=== PATIENT | male | born 1980 | race Caucasian/White ===

== ENCOUNTER 2017-08-01 22:26 | Inpatient (IN) | payer BC ==
[~2017-08-01] VITALS: Ht 175.3 cm; Wt 73.3 kg
[~2017-08-01 22:26] MED LIST: BACLOFEN10 MG PO; BUSPIRONE HCL10 MG PO; CATAPRES-TTS 21 EACH TD; FOLIC ACID1 MG PO; KLONOPIN0.5 M1 PO; LISINOPRIL10 MG PO; NEXIUM20 MG PO; NEXIUM40 MG PO; OXYCODONE HCL10 MG PO; OXYCONTIN40 MG PO; REGLAN10 MG PO
[2017-08-01 23:25] LABS: HEMATOCRIT 46.8 % (38.0-50.0); MCH 32.3 PG (29.0-34.0); MCHC 34.2 G/DL (30.0-36.0); MCV 94.5 FL (86-99); MEAN PLAT.VOLUME 10.3 uM^3 (9.0-12.4); PLATELET COUNT 161 K/uL (156-360); RBC DIS.WIDTH-SD 59.3 % (39-53); RED BLOOD COUNT 4.95 M/uL (4.00-5.50); WHITE BLOOD COUNT 6.4 K/uL (4.1-10.2)
[2017-08-01 23:36] LABS: CHLORIDE 109 mEq/L (99-109); POTASSIUM 3.7 mEq/L (3.7-5.4); SODIUM 145 mEq/L (136-147)
[2017-08-01 23:38] LABS: GLUCOSE 129 mg/dL (70-99)
[2017-08-01 23:39] LABS: ANION GAP 18 MEQ/L (2-14)
[2017-08-01 23:41] LABS: SERUM ETHYL ALCOHOL 388 mg/dL
[2017-08-01 23:42] LABS: GFR ESTIMATE (CALCULATED) > 59 mL/min/
[2017-08-01 23:43] LABS: UREA NITROGEN (BUN) 8 mg/dL (9-23)
[2017-08-02 04:28] LABS: POINT-OF-CARE METER ID UU13113747
[2017-08-02 05:14] LABS: AMPHETAMINE NEGATIVE (500 ng/mL); BARBITURATES NEGATIVE (200 ng/mL); BENZODIAZEPINES NEGATIVE (150 ng/mL); COCAINE NEGATIVE (150 ng/mL); METHADONE NEGATIVE (200 ng/mL); METHAMPHETAMINE NEGATIVE (500 ng/mL); OPIATES (MORPHINE) NEGATIVE (100 ng/mL); OXYCODONE PRESUMPTIVE POSITIVE (100 ng/mL); PHENCYCLIDINE NEGATIVE (25 ng/mL); THC CANNABINOIDS NEGATIVE (50 ng/mL); TRICYCLIC ANTIDEPRESSANTS NEGATIVE (300 ng/mL)
[2017-08-02 05:15] LABS: INTERNAL CONTROLS VALID? YES; PROPOXYPHENE NEGATIVE (300 ng/mL)
[2017-08-02] MEDS ORDERED: OXYCONTIN40 MG PO (09:09)
[2017-08-02] MEDS ORDERED: ELAVIL50 MG PO (09:11)
[2017-08-02 10:56] VITALS: BP 144/96
[2017-08-02 16:00] VITALS: BP 139/88
[2017-08-02 19:39] VITALS: BP 139/93
[2017-08-03 00:08] VITALS: BP 155/82
[2017-08-03 04:01] VITALS: BP 142/84
[2017-08-03 06:59] LABS: HEMATOCRIT 39.3 % (38.0-50.0); MCH 32.9 PG (29.0-34.0); MCHC 34.4 G/DL (30.0-36.0); MCV 95.9 FL (86-99); RBC DIS.WIDTH-CV 15.9 % (11.8-14.6); RBC DIS.WIDTH-SD 56.6 % (39-53); WHITE BLOOD COUNT 5.3 K/uL (4.1-10.2)
[2017-08-03 07:10] LABS: ANION GAP 9 MEQ/L (2-14); CHLORIDE 106 MEQ/L (99-109); GFR ESTIMATE (CALCULATED) > 59 mL/min/; POTASSIUM 3.5 MEQ/L (3.7-5.4); SAMPLE HEMOLYSIS CHECK 0; SAMPLE ICTERIC CHECK 0; SAMPLE LIPEMIA CHECK 0; SODIUM 144 MEQ/L (136-147); UREA NITROGEN (BUN) 8 mg/dL (9-23)
[2017-08-03 07:11] LABS: GLUCOSE 96 mg/dL (70-99)
[2017-08-03 07:24] LABS: MEAN PLAT.VOLUME 10.3 uM^3 (9.0-12.4); PLAT.SUFFICIENCY DECREASED
[2017-08-03 07:32] LABS: PLATELET COUNT 97 K/uL (156-360)
[2017-08-03 16:17] VITALS: BP 130/58
[2017-08-03 23:13] VITALS: BP 152/78
[2017-08-04 06:32] LABS: MCH 31.6 PG (29.0-34.0); MCHC 32.5 G/DL (30.0-36.0); MCV 97.1 FL (86-99); MEAN PLAT.VOLUME 10.7 uM^3 (9.0-12.4); PLATELET COUNT 91 K/uL (156-360); RBC DIS.WIDTH-CV 15.9 % (11.8-14.6); RBC DIS.WIDTH-SD 56.8 % (39-53); RED BLOOD COUNT 4.12 M/uL (4.00-5.50); WHITE BLOOD COUNT 3.9 K/uL (4.1-10.2)
[2017-08-04 07:01] LABS: ANION GAP 12 MEQ/L (2-14); CHLORIDE 108 MEQ/L (99-109); GFR ESTIMATE (CALCULATED) > 59 mL/min/; MAGNESIUM 1.6 mg/dl (1.3-2.7); POTASSIUM 3.7 MEQ/L (3.7-5.4); SAMPLE HEMOLYSIS CHECK 0; SAMPLE ICTERIC CHECK 0; SAMPLE LIPEMIA CHECK 0; SODIUM 144 MEQ/L (136-147); UREA NITROGEN (BUN) 6 mg/dL (9-23)
[2017-08-04 07:02] LABS: GLUCOSE 206 mg/dL (70-99)
[2017-08-04 07:20] VITALS: BP 155/96
[2017-08-04 15:45] VITALS: BP 155/102
[2017-08-04 16:16] VITALS: BP 144/94
[2017-08-04 23:42] VITALS: BP 150/90
[2017-08-05 06:35] LABS: MCH 31.7 PG (29.0-34.0); MCHC 32.8 G/DL (30.0-36.0); MCV 96.9 FL (86-99); MEAN PLAT.VOLUME 10.5 uM^3 (9.0-12.4); PLATELET COUNT 88 K/uL (156-360); RBC DIS.WIDTH-CV 15.7 % (11.8-14.6); RBC DIS.WIDTH-SD 56.2 % (39-53); RED BLOOD COUNT 4.13 M/uL (4.00-5.50); WHITE BLOOD COUNT 4.1 K/uL (4.1-10.2)
[2017-08-05 07:05] LABS: ANION GAP 8 MEQ/L (2-14); CHLORIDE 108 MEQ/L (99-109); GFR ESTIMATE (CALCULATED) > 59 mL/min/; GLUCOSE 126 mg/dL (70-99); SAMPLE HEMOLYSIS CHECK 0; SAMPLE ICTERIC CHECK 0; SAMPLE LIPEMIA CHECK 0; SODIUM 142 MEQ/L (136-147); UREA NITROGEN (BUN) 5 mg/dL (9-23)
[2017-08-05 07:31] VITALS: BP 143/83
[2017-08-05 15:16] VITALS: BP 170/105
[2017-08-05 20:06] LABS: HEMATOCRIT 40.4 % (38.0-50.0); MCH 31.9 PG (29.0-34.0); MCHC 32.9 G/DL (30.0-36.0); MCV 96.9 FL (86-99); RBC DIS.WIDTH-CV 15.7 % (11.8-14.6); RBC DIS.WIDTH-SD 56.4 % (39-53); RED BLOOD COUNT 4.17 M/uL (4.00-5.50); WHITE BLOOD COUNT 4.6 K/uL (4.1-10.2)
[2017-08-05 20:36] LABS: PLAT.SUFFICIENCY DECREASED; PLATELET COUNT 108 K/uL (156-360)
[2017-08-05 23:54] VITALS: BP 158/101
[2017-08-06 06:53] LABS: HEMATOCRIT 40.1 % (38.0-50.0); MCH 31.3 PG (29.0-34.0); MCHC 32.4 G/DL (30.0-36.0); MCV 96.4 FL (86-99); MEAN PLAT.VOLUME 10.7 uM^3 (9.0-12.4); PLATELET COUNT 104 K/uL (156-360); RBC DIS.WIDTH-CV 15.6 % (11.8-14.6); RBC DIS.WIDTH-SD 55.8 % (39-53); RED BLOOD COUNT 4.16 M/uL (4.00-5.50); WHITE BLOOD COUNT 4.8 K/uL (4.1-10.2)
[2017-08-06 07:22] LABS: ANION GAP 8 MEQ/L (2-14); CHLORIDE 106 MEQ/L (99-109); GFR ESTIMATE (CALCULATED) > 59 mL/min/; GLUCOSE 97 mg/dL (70-99); POTASSIUM 3.9 MEQ/L (3.7-5.4); SAMPLE HEMOLYSIS CHECK 0; SAMPLE ICTERIC CHECK 0; SAMPLE LIPEMIA CHECK 0; SODIUM 140 MEQ/L (136-147); UREA NITROGEN (BUN) 5 mg/dL (9-23)
[2017-08-06 07:29] VITALS: BP 156/90
[2017-08-06 16:20] VITALS: BP 165/105
[2017-08-06 16:24] VITALS: BP 158/98
[2017-08-06 22:44] LABS: Heparin Induced Plt Ab Negative (Negative)
[2017-08-06 23:51] VITALS: BP 137/92
[2017-08-07 07:16] LABS: ANION GAP 11 MEQ/L (2-14); CHLORIDE 107 MEQ/L (99-109); GFR ESTIMATE (CALCULATED) > 59 mL/min/; GLUCOSE 116 mg/dL (70-99); POTASSIUM 3.9 MEQ/L (3.7-5.4); SAMPLE HEMOLYSIS CHECK 0; SAMPLE ICTERIC CHECK 0; SAMPLE LIPEMIA CHECK 0; SODIUM 141 MEQ/L (136-147); UREA NITROGEN (BUN) 6 mg/dL (9-23)
[2017-08-07 07:41] LABS: HEMATOCRIT 40.1 % (38.0-50.0); MCH 33.5 PG (29.0-34.0); MCHC 34.2 G/DL (30.0-36.0); MEAN PLAT.VOLUME 10.9 uM^3 (9.0-12.4); PLATELET COUNT 106 K/uL (156-360); RBC DIS.WIDTH-CV 15.9 % (11.8-14.6); RBC DIS.WIDTH-SD 57.4 % (39-53); RED BLOOD COUNT 4.09 M/uL (4.00-5.50); WHITE BLOOD COUNT 5.5 K/uL (4.1-10.2)
[2017-08-07 07:47] VITALS: BP 148/96
[2017-08-07] MEDS ORDERED: NICOTINE PATCH1 EAC1 TD (08:39)
[2017-08-07] MEDS ORDERED: THERAGRAN1 TABLET PO (08:40)
[2017-08-07] MEDS ORDERED: LIBRIUM25 MG PO (08:56)
[2017-08-08 11:16] LABS: UFH SRA Result Negative (Negative)
== END 2017-08-07 10:11 | disposition home or self-care (01) | DRG 897 ==
LOC: EME 22:26 → 5EAST 08-02 08:00 → EDOF 08-02 08:00 → ENRESERV 08-02 08:05 → 5EAST 08-02 10:32
PROVIDERS: Emergency Medicine; Hospitalist; Internal Medicine; Internal Medicine Medical Oncology
DX: F10.230 Alcohol dependence with withdrawal, uncomplicated (principal); R45.851 Suicidal ideations; D69.6 Thrombocytopenia, unspecified; F10.229 Alcohol dependence with intoxication, unspecified; Y90.8 Blood alcohol level of 240 mg/100 ml or more; E87.6 Hypokalemia; I10 Essential (primary) hypertension; K21.9 Gastro-esophageal reflux disease without esophagitis; K22.70 Barrett's esophagus without dysplasia; F32.9 Major depressive disorder, single episode, unspecified; F41.9 Anxiety disorder, unspecified; G89.29 Other chronic pain; M54.5 Low back pain; M25.569 Pain in unspecified knee; M54.2 Cervicalgia; F17.210 Nicotine dependence, cigarettes, uncomplicated
CPT/HCPCS: 71010; 80048; 82948; 83735; 84100; 85027; 86022 90; 94799; 99281; 99285; G0480; J1644; J1885; J2060; J2270; J2405; J3411; J7030